=== PATIENT | female | born 1980 | race Caucasian/White ===

== ENCOUNTER 2017-11-21 12:02 | Emergency (ER) | payer OTHER ==
[2017-11-21 12:06] VITALS: BP 107/66; PULSE 87; RESP 16; TEMP 98.1; O2SAT 100
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
[2017-11-21] MEDS ORDERED: NORC5TAB PO (13:59)
[2017-11-21] MEDS ORDERED: ACETAMINOPHEN/HYDROcodone 325 MG/5 MG TAB PO ONE (14:00)
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
--- NOTE | 2017-11-21 14:52 | RADRPT ---
EXAM DATE/TIME: 11/21/2017 14:27 [facility] COMPARISON: No previous studies available for comparison. INDICATIONS : Left femur pain MEDICAL HISTORY : None. SURGICAL HISTORY : None. ENCOUNTER: Initial ACUITY: 1 day PAIN SCORE: 10/10 LOCATION: Left femur FINDINGS: Two view examination of the left femur demonstrates no evidence of fracture or dislocation. Bony min eralization is normal. The soft tissue structures are intact. CONCLUSION: No acute disease. Noah Carrillo MD on November 21, 2017 at 14:49 Board Certified Radiologist. This report was verified electronically.
[2017-11-21 15:28] VITALS: RESP 16
== END 2017-11-21 15:31 | disposition home or self-care (01) ==
LOC: NEPD 12:02
DX: S80.12XA Contusion of left lower leg, initial encounter (principal); V09.20XA Pedestrian injured in traffic accident involving unspecified motor vehicles, initial encounter
CPT/HCPCS: 73502; 73552; 73590; 99284